=== PATIENT | male | born 1990 | race Two or more races ===

== ENCOUNTER 2018-12-03 14:03 | Emergency (ER) | payer OTHER ==
[2018-12-03 14:14] VITALS: RESP 18
[2018-12-03] MEDS ORDERED: KETOROLAC 30 MG/ML 1 ML VIAL IM STA (14:54)
--- NOTE | 2018-12-03 15:00 | ED ---
Recheck HPI - General Chief Complaint: Recheck/Abnormal Lab/Rx Stated Complaint: Flank pain Time Seen by Provider: 12/03/18 14:30 Source: patient, RN notes reviewed, old records reviewed Mode of arrival: ambulatory Limitations: no limitations - History of Present Illness Initial Comments: Jeanette is a 28-year-old male presents emergency department today with complaints of 1 month of left-sided rib and back pain. Worse with movement. The joint of the history was given to me through a phone supervisor [employer]. - Related Data Previous Rx's Medication Instructions Recorded Cyclobenzaprine [Flexeril] 10 mg PO TID #12 tab 12/03/18 Ibuprofen 600 mg PO TID #20 tablet 12/03/18 metFORMIN HCL 500 mg PO BID #14 tablet 12/03/18 Allergies Allergy/AdvReac Type Severity Reaction Status Date / Time No Known Allergies Allergy Verified 12/03/18 14:10 Review of Systems ROS Statement: Those systems with pertinent positive or pertinent negative responses have been documented in the HPI. ROS Other: All systems not noted in ROS Statement are negative. Past Medical History Past Medical History: No Reported History History of Any Multi-Drug Resistant Organisms: None Reported Past Surgical History: No Surgical Hx Reported Past Psychological History: No Psychological Hx Reported Smoking Status: Current every day smoker Past Alcohol Use History: None Reported Past Drug Use History: None Reported General Exam - General Exam Comments Initial Comments: 28 year old male. No distress. Limitations: no limitations General appearance: alert, in no apparent distress Head exam: Present: atraumatic, normocephalic, normal inspection Eye exam: Present: normal appearance, PERRL, EOMI. Absent: scleral icterus, conjunctival injection, periorbital swelling ENT exam: Present: normal exam, mucous membranes moist Neck exam: Present: normal inspection. Absent: tenderness, meningismus, lymphadenopathy Respiratory exam: Present: normal lung sounds bilaterally. Absent: respiratory distress, wheezes, rales, rhonchi, stridor Cardiovascular Exam: Present: regular rate, normal rhythm, normal heart sounds. Absent: systolic murmur, diastolic murmur, rubs, gallop, clicks GI/Abdominal exam: Present: soft, normal bowel sounds. Absent: distended, tenderness, guarding, rebound, rigid Extremities exam: Present: normal inspection, full ROM, normal capillary refill , other (tender over L flank and paraspinal muscles. ). Absent: tenderness, pedal edema, joint swelling, calf tenderness Back exam: Present: normal inspection Neurological exam: Present: alert, oriented X3, CN II-XII intact Psychiatric exam: Present: normal affect, normal mood Course Vital Signs 12/03/18 12/03/18 14:10 17:06 Temperature 97.9 F 98.2 F Pulse Rate 74 61 Respiratory 18 18 Rate Blood Pressure 141/91 131/69 O2 Sat by Pulse 96 100 Oximetry Medical Decision Making - Medical Decision Making 28 year old male presents with one month of flank and back pain worse with movement. I decided to check UA to access for hematuria. Patient has four plus glucose and POC glucose was 216. Patient xrays of back spine and ribs are unremarkable. Patient pain is reproducible to palpation, and believe it is muscluskeletal. I had a lengthy discussed with patient that his blood sugar is elevated and can be diagnosed as a diabetic. He denies weight loss or other complaints. Discussed diet modification, starting metformin, and PCP follow up. DC with antiinflammatory meds, metformin, and Strict return parameters. Discussed with patient on translation raquel, and he verbalized understanding. - Lab Data Lab Results 12/03/18 12/03/18 12/03/18 Range/Units 14:56 15:48 15:50 POC Glucose (mg/dL) 216 H (75-99) mg/dL POC Glu Slat Pickler ANTONIO Melissa Rh[address] Glu mg/dL 97 Hemoglobin A1c 5.0 (4.0-6.0) % Urine Color Yellow Urine Appearance Clear (Clear) Urine pH 5.5 (5.0-8.0) Ur Specific [place] 1.020 (1.001-1.035) Urine Protein Trace H (Negative) Urine Glucose (UA) 4+ H (Negative) Urine Ketones Negative (Negative) Urine Blood Negative (Negative) Urine Nitrite Negative (Negative) Urine Bilirubin Negative (Negative) Urine Urobilinogen <2.0 (<2.0) mg/dL Ur Leukocyte Esterase Negative (Negative) Disposition Clinical Impression: Elevated blood sugar, Left paraspinal back pain Disposition: HOME SELF-CARE Condition: Good Instructions (If sedation given, give patient instructions): Type 2 Diabetes in Adults: New Diagnosis (ED), Chronic Back Pain (ED) Additional Instructions: Patient advised to follow-up with primary care physician within the next 1-2 days. Take the medication and muscle relaxers prescribed. Patient should return to the emergency department if any alarming signs or symptoms occur. Prescriptions: Cyclobenzaprine [Flexeril] 10 mg PO TID #12 tab Ibuprofen 600 mg PO TID #20 tablet metFORMIN HCL 500 mg PO BID #14 tablet Is patient prescribed a controlled substance at d/c from ED?: No Referrals: None,Stated [Primary Care Provider] - 1-2 days Christina Broussard MD [STAFF PHYSICIAN] - 1-2 days Gaviota Gregory MD [REFERRING] - 1-2 days Erin Jonas MD [STAFF PHYSICIAN] - 1-2 days Time of Disposition: 16:51
--- NOTE | 2018-12-03 15:23 | XR ---
Abdomen HISTORY: Left-sided pain Frontal view of the abdomen on 2 images Lung bases are clear. There is no evident pneumoperitoneum or bowel obstruction. Bone mineralization is normal. No pathologic calcification. IMPRESSION: Nonobstructive bowel gas pattern.
[2018-12-03 15:24] LABS: Appearance,Urine Clear (Clear); Bilirubin,Urine Negative (Negative); Blood,Urine Negative (Negative); Color,Urine Yellow; Glucose,Urine (UA) 4+ (Negative); Ketones,Urine Negative (Negative); Leukocyte Esterase,Urine Negative (Negative); Nitrite,Urine Negative (Negative); PH, Urine 5.5 (5.0-8.0); Protein,Urine Trace (Negative); Urobilinogen,Urine <2.0 mg/dL (<2.0)
--- NOTE | 2018-12-03 15:25 | XR ---
Lumbar spine HISTORY: Left flank pain 3 views of the lumbar spine Bone mineralization, joint spaces and alignment are maintained. Disc spaces are normal. No paraspinal mass. IMPRESSION: Normal lumbar spine.
--- NOTE | 2018-12-03 15:27 | XR ---
EXAMINATION TYPE: XR chest 2V DATE OF EXAM: 12/03/2018 COMPARISON: NONE HISTORY: Left-sided rib pain TECHNIQUE: Frontal and lateral views of the chest are obtained. FINDINGS: There is no focal air space opacity, pleural effusion, or pneumothorax seen. The cardiac silhouette size is within normal limits. The osseous structures are intact. IMPRESSION: No acute cardiopulmonary process.
[2018-12-03 15:50] LABS: Glucose,Whole Blood 216 mg/dL (75-99)
[2018-12-03 17:07] VITALS: BP 131/69; PULSE 61; TEMP 98.2
== END 2018-12-03 17:06 | disposition home or self-care (01) ==
LOC: EC 14:03
DX: R73.9 Hyperglycemia, unspecified (principal); M54.9 Dorsalgia, unspecified; R07.81 Pleurodynia; R10.9 Unspecified abdominal pain; F17.200 Nicotine dependence, unspecified, uncomplicated
CPT/HCPCS: 99284; 96372; 36415; 81003; 83036; 72100; 71046; 74018; J1885